=== PATIENT | female | born 1980 | race Caucasian/White ===

== ENCOUNTER 2019-12-29 22:03 | Emergency (ER) | payer OTHER, SELFPAY ==
[2019-12-29 22:11] VITALS: BP 174/101; PULSE 109; RESP 18; TEMP 36.8; O2SAT 96; BMI 36.5
[2019-12-29] MEDS: diphenhydrAMINE 50 mg/mL SDV 1mL IVP (22:32)
[2019-12-29] MEDS: famotidine 20 mg/2 mL INJ 40 MG IVP (22:32)
[2019-12-29 22:37] VITALS: BP 166/102; PULSE 118; RESP 18; O2SAT 99
--- NOTE | 2019-12-29 22:54 | ED_ITS ---
HPI - Allergic Reaction General: Chief complaint: Allergic Reaction Stated complaint: poss allergic reaction Time Seen by Provider: 12/29/19 22:20 Source: patient Mode of arrival: ambulatory Limitations: no limitations History of Present Illness: HPI narrative: Mariana is a nice 39-year-old female who comes in with what she believes to be an allergic reaction. She states she ate some new food tonight which she has never had before. She states she feels swelling in her face and neck. She denies any difficulty talking or difficulty swallowing. She denies any shortness of breath or hives. She has not had a fever or chills or any other infectious type symptoms. The patient has had similar symptoms in the past but never as severe as this. Associated symptoms: Deny abdominal pain, dizziness, facial swelling, hoarseness, nausea, tongue swelling or vomiting Review of Systems Const: Denies: fever(s), chills, body aches, fatigue, malaise or diaphoresis Eyes: Denies: change in vision, blurry vision, blind spots, photophobia, eye discharge or eye redness ENMT: Denies: odynophagia, hoarseness, swelling of lips/tongue, oral sores, ear or mastoid pain, ear discharge, change in hearing or nasal discharge Card: Denies: chest pain, palpitations, irregular heart rhythm, edema, lightheadedness, syncope, pre-syncope, dyspnea on exertion or orthopnea Resp: Denies: dyspnea, productive cough, non-productive cough, wheezing, hemoptysis or chest congestion GI: Denies: abdominal pain, nausea, vomiting, hematemesis, coffee ground emesis, heartburn, diarrhea, constipation, GI cramping, hematochezia or melena : Denies: flank pain, dysuria, urinary frequency, urinary urgency or hematuria Musc: Denies: neck pain, back pain, extremity pain, extremity swelling, joint pain, joint swelling, joint redness, joint warmth or joint stiffness Skin/Breast: Denies: rash, pruritus, erythema, skin tenderness or jaundice Neuro: Denies: headache(s), numbness in extremities, weakness in extremities, sensory changes, lack of coordination, difficulty walking, dizziness, vertigo, confusion, Slurred speech present or seizure-like activity Clarence/Lymph: Denies: easy bruising, easy bleeding, petechiae, purpura or enlarged lymph nodes All/Imm: Denies: urticaria, throat swelling, tongue swelling, facial swelling or acute wheezing PFSH ED PFSH: Social History Smoking and tobacco status: never smoked Alcohol intake: never Substance/Drug Use: never Female Reproductive History: Date of last menstrual period: 12/21/19 Physical Exam Const: COMMON NORMALS: no acute distress, patient oriented x3, no limitations, healthy appearing and well nourished GENERAL APPEARANCE: cooperative, well kempt and well developed HENMT: COMMON NORMALS: normocephalic, atraumatic, external ears normal, EAC's normal and Normal external nose present HEAD & SCALP: normal to inspection, normocephalic and atraumatic FACE & SINUS: normal facial exam and face symmetric NOSE: Normal external nose present and Normal nares present EXTERNAL EAR: Yes external ears normal EXTERNAL AUDITORY CANAL: EAC's normal MOUTH: Normal oral and palatal mucosa present, lip normal and tongue normal Eye: COMMON NORMALS: Equal, round and reactive pupils present and conjunctivae normal GENERAL EYE: appearance normal, both eyes and all related structures ALIGNMENT: Yes alignment normal PERIORBITAL: periorbital findings normal EYELID: eyelids normal CONJUNCTIVA: Yes conjunctivae normal SCLERA: sclerae normal PUPIL: Yes Equal, round and reactive pupils present Neck/C-Spine: COMMON NORMALS: full ROM, no lymphadenopathy, supple, no meningeal signs and no JVD GENERAL: Yes normal visual inspection and Yes trachea midline Chest: COMMONS NORMALS: normal inspection of the chest and normal palpation of entire chest wall Resp: COMMON NORMALS: normal respiratory effort, No retractions and No use of accessory muscles EFFORT & INSPECTION: Yes able to speak in complete sentences and Yes symmetric chest movement AUSCULTATION: no crackles, no rales, no rhonchi and no wheezes Cardio: COMMON NORMALS: no JVD, regular rate, regular rhythm, S1 normal heart sound present and S2 normal heart sound present RATE: regular rate RHYTHM: regular rhythm HEART SOUNDS: S1 normal heart sound present, S2 normal heart sound present, no click, no gallops, no murmurs, no rubs and abnormal split S2 GI: COMMON NORMALS: Soft to palpation and No hepatosplenomegaly present PALPATION: Yes Soft to palpation, No Tenderness to palpation present (GI), No Guarding due to palpation present (GI), No Rigid due to palpation, Yes No hepatosplenomegaly present, No Hernia present, No Palpable mass present and No Pulsatile mass present : COMMON NORMALS: Yes no CVA tenderness BLADDER/KIDNEY EXAM: Yes no CVA tenderness EXTERNAL FEMALE EXAM: No Hernia present Back/Pelvis: COMMON NORMALS: no CVA tenderness, thoracic and lumbar spine normal to inspection, no thoracic nor lumbar tenderness and thoraco-lumbar ROM normal Extremity: COMMON NORMALS: normal to inspection, full ROM, capillary refill normal, no joint enlargement, no clubbing, cyanosis or edema and no calf tenderness Neuro: COMMON NORMALS: patient oriented x3, CN's II-XII intact bilaterally, moves all extremities, no focal motor deficits and no sensory deficits noted MENINGEAL SIGNS: Yes no meningeal signs SPEECH: speech normal Psych: COMMON NORMALS: mental status grossly normal, Normal thought process present, cooperative, normal affect, speech normal and activity/motor behavior normal APPEARANCE: Yes well kempt SPEECH: Yes normal speech THOUGHT PROCESS: Normal thought process present Skin: COMMON NORMALS: no rashes or lesions noted, turgor normal, no jaundice, no petechiae and no mottling GENERAL SKIN EXAM: no rashes or lesions noted and turgor normal Course Vital Signs: Vital signs: Vital Signs Temperature 98.3 F 12/29/19 22:11 Pulse Rate 135 H 12/30/19 00:20 Respiratory Rate 20 H 12/30/19 00:20 Blood Pressure 169/91 12/30/19 00:20 Pulse Oximetry 99 12/30/19 00:20 MDM - Allergic Reaction MDM Narrative: Medical decision making narrative: The patient symptoms had already begun to improve prior to arrival. They have completely resolved at this time. The patient does complain of some jitteriness and she has an elevated heart rate from the albuterol. She never really had shortness of breath but states she feels 100% better at this time and wants to go home. I have reviewed with her at length how to take prednisone, Benadryl and Solu- Medrol and she is in agreement. She denies any other complaints or concerns. She does agree to return if her symptoms return but at this time they were markedly better and although she has had allergic reactions before she is never had a biphasic reaction. She is beyond the 3-hour kenrick which is typical for biphasic reactions to occur. EKG Data^: EKG 1: Attestation: I personally reviewed and interpreted this EKG as follows: EKG interpretation date: 12/29/19 EKG interpretation time: 22:27 Interpretation: Normal sinus rhythm 112 beats a minute, normal axis, no acute ST-T wave changes. Discharge Plan Discharge Patient Disposition: Home Clinical Impression: Allergic reaction Qualifiers: Encounter type: initial encounter Qualified Code(s): T78.40XA - Allergy, unspecified, initial encounter Condition: Stable Prescriptions: New prednisone 10 mg tablet 20 mg PO TID 5 Days Qty: 30 RF: 0 Discharge Orders: Discharge Order (Routine); Ordered 12/29/19 Ordered By: Fidelia Casper Referrals: José Miguel Byrd MD [Physician] - 1-3 days (Follow-up with your primary care physician but also follow-up with Dr. Byrd for allergy testing.) Discharge Diet: Advance as tolerated Discharge Activity: Increase activity as tolerated Patient Instructions: Allergic Reaction, Urticaria (ED), Food Allergy (ED), Anaphylaxis (ED) Activity Restrictions/Additional Instructions: Please return to the ER immediately for any of the signs or symptoms listed on your discharge instruction sheets, worsening/changing of your symptoms, you are not getting better as quickly as expected, or for ANY other cause or concerns. If your symptoms return in any way, you develop shortness of breath, you develop hives, and have weakness or any other concerns please return to the ER immediately for recheck. Take Benadryl 25 to 50 mg every 6 hours for the next 2 days and also take Pepcid [id number] 40 mg twice daily for the next 2 days. Be certain to take the complete 5 days of prednisone. Discharge Date/Time: 12/30/19 00:21 Coding Level of Care Code ED Automatic [employer]ting [employer] Operator for Chg Fwd Exam Comprehensive
[2019-12-29 23:11] VITALS: BP 171/107; PULSE 120; RESP 19; O2SAT 99
[2019-12-29 23:43] VITALS: PULSE 123; RESP 18; O2SAT 99
[2019-12-29 23:47] VITALS: BP 163/93; PULSE 130; PULSE 139; RESP 129; O2SAT 100
[2019-12-30] MEDS: predniSONE 20 mg Tablet 60 MG PO (00:12)
[2019-12-30 00:20] VITALS: BP 169/91; PULSE 135; RESP 20; O2SAT 99
== END 2019-12-30 00:21 | disposition home or self-care (01) ==
PROVIDERS: Emergency Provider Emergency Medicine
DX: T78.40XA Allergy, unspecified, initial encounter (principal)
CPT/HCPCS: 12345; 94640; 96374; 96375; 99282; 99283; J1200; J2930; J3490; J7512; J7611